=== PATIENT | male | born 1960 | race Native Hawaiian/Other Pacific Islander ===

== ENCOUNTER 2017-07-09 08:54 | Day surgery (SDC) | payer OTHER ==
[2017-07-09 10:26] VITALS: BMI 30.8
[2017-07-09] MEDS ORDERED: Lidocaine Hydrochloride 5 ML INJ ONE (10:59)
[2017-07-09] MEDS ORDERED: Propofol 10 mg/ml Inj (20 ML) ONE (10:59)
[2017-07-09 12:10] VITALS: TEMP 97.5
[2017-07-09 12:37] VITALS: O2SAT 98
[2017-07-09 15:40] VITALS: BP 149/65; PULSE 68; RESP 18
== END 2017-07-09 15:38 | disposition home or self-care (01) ==
LOC: C.ENDO 08:54
PROVIDERS: ATTEND Internal Medicine Gastroenterology
DX: K29.70 Gastritis, unspecified, without bleeding (principal); Z12.11 Encounter for screening for malignant neoplasm of colon; K64.1 Second degree hemorrhoids; I10 Essential (primary) hypertension; E78.5 Hyperlipidemia, unspecified
CPT/HCPCS: 43239; 45378; 88305; J2704; J3010